=== PATIENT | female | born 1980 | race Two or more races ===

== ENCOUNTER 2024-12-10 12:10 | Day surgery (SDC) | payer MEDICAID, SELFPAY ==
[2024-12-05 15:09] VITALS: BMI 33.0
[2024-12-10] VITALS (10 sets, daily range): BP systolic 100–148; BP diastolic 45–81; PULSE 61–74; RESP 12–21; TEMP 36.6–36.9; O2SAT 95–100; BMI 30.6
[2024-12-10 13:09] LABS: HCG Qualitative,Urine Negative
[2024-12-10] MEDS: RINGERS LACTATED 1000 ML 1,000 ML 100 ML IV (14:47)
[2024-12-10] MEDS: fentaNYL CIT INJ 50 mCg/ML AMP 2ML (ASD USE ONLY) IVP (14:50)
[2024-12-10] MEDS: MIDAZOLAM INJ 1 MG/ML VIAL 2 ML (ASD USE ONLY) 2 MG IVP (14:50)
== END 2024-12-10 15:47 | disposition home or self-care (01) ==
PROVIDERS: PCP Physician Assistant; Referring Provider Surgery; Visit Provider Surgery
PROC: 0DBE8ZX Excision of Large Intestine, Via Natural or Artificial Opening Endoscopic, Diagnostic (ICD-10-PCS; CPT 45380; principal; 2024-12-10 13:00)
DX: K62.5 Hemorrhage of anus and rectum (principal)
CPT/HCPCS: 45378; 81025; J2250; J3010; J7120